=== PATIENT | female | born 1975 | race Caucasian/White ===

== ENCOUNTER → 2016-07-17 | Day surgery (SDC) | payer OTHER ==
[2016-06-27 13:05] VITALS: Ht 170.2 cm; Wt 75.0 kg
[2016-06-27 17:44] LABS: BASO % 1.1 %; COMPLETE YES; EOS % 9.3 %; HEMATOCRIT 41.8 % (37-47); IG% 0.1 %; LYMPH % 37.5 %; LYMPH ABS # 3.56 K/uL (1.2-3.4); MEAN CELL VOLUME 92.7 fL (80-100); MEAN CORPUSCULAR HEMOGLOBIN 31.7 pg (25-34); MEAN CORPUSCULAR HGB CONC 34.2 g/dl (32-36); MEAN PLATELET VOLUME 10.5 fL (7.4-10.4); MONO % 5.6 %; NEUT % 46.4 %; PLATELET COUNT 325 K/uL (130-400); RED BLOOD COUNT 4.51 M/uL (4.2-5.4)
--- NOTE | 2016-06-27 17:46 | HISTORY & PHYSICAL EXAMINATION ---
DATE OF ADMISSION: 07/17/2016 PREOPERATIVE HISTORY AND PHYSICAL ADMITTING DIAGNOSIS: Desired permanent surgical sterilization. ADMISSION HISTORY: The patient is a 41-year-old 1, para 1 on a progesterone only pill who is admitted for permanent surgical sterilization. The patient was placed on the progesterone only pill at age 35 because of her smoking history. While this is providing contraception for her, the patient has spotting all the time. The patient adamantly desires no further childbearing capacity and wishes to have permanent surgical sterilization. PAST MEDICAL HISTORY: OBSTETRICAL: x1. GYNECOLOGICAL: As above. MEDICAL: None. SURGICAL: Gallbladder surgery. ALLERGIES: No known drug allergies. SOCIAL HISTORY: Positive for smoking. FAMILY HISTORY: Noncontributory. REVIEW OF SYSTEMS: As per HPI. ADMISSION PHYSICAL EXAMINATION: GENERAL: Shows a pleasant female in no acute distress. VITAL SIGNS: Blood pressure 118/66, height of 5 feet 8 inches, 165 pounds. HEENT: Unremarkable. NECK: Supple. LUNGS: Clear. HEART: With a regular rhythm and rate. ABDOMEN: Soft, nontender. PELVIC: Shows normal external genitalia, vaginal wall pink and rugated. Cervical os multiparous and closed. Bimanual examination shows a posterior mobile uterus. Adnexa show no palpable masses. RECTAL: Confirmatory. EXTREMITIES: Shows no deep calf tenderness. NEUROLOGIC: Grossly intact. IMPRESSION: A 41-year-old 1, para 1 for permanent surgical sterilization. PLAN: Risks, benefits and alternatives to the surgery have been discussed. While the benefits will be permanent surgical sterilization, the risks are bleeding, infection, inadvertent injury to bowel or bladder or failure of the procedure itself, failure rate quoted at 1-3%. The patient understands this. Permit has been signed and she wishes to proceed.
[~2016-07-17] VITALS: Ht 170.2 cm; Wt 75.0 kg
[~2016-07-17] MED LIST: ATROPINE SULFATE 0.1 MG/ML 5ML SYR IV PRN; BCPILLS PO; DEXAMETHASONE SOD INJ 4 MG/ML VIAL ONE; ESCI10TA17 PO; EpHEDrine SULFATE 50MG/5ML SYR ONE; EpHEDrine SULFATE INJ 50 MG/ML AMP IV PRN; FENTANYL CITRATE INJ 50 MCG/1 ML 2 ML VIAL IV PRN; FENTANYL CITRATE INJ 50 MCG/1 ML 2 ML VIAL ONE; GLYCOPYRROLATE INJ 0.2 MG/ML VIAL ONE; HYDR200T5 PO; IBUPROFEN 600 MG TAB PO PRN; KETOROLAC TROMETHAMINE 30 MG/ML VIAL IV. PRN; KETOROLAC TROMETHAMINE 30 MG/ML VIAL ONE; LACTATED RINGER'S 1000ML 1,000 ML IV SCH; LIDOCAINE HCL 2% 2 ML VIAL (20MG/ML) ONE; MIDAZOLAM HCL 1 MG/ML 2ML VIAL ONE; NEOSTIGMINE METHYLSULFATE 5 MG/5 ML SYR ONE; ONDANSETRON INJ 2 MG/ML 2 ML VIAL IV PRN; ONDANSETRON INJ 2 MG/ML 2 ML VIAL ONE; OXYC-57 PO; OXYCODONE/ACETAMINOPHEN 5-325 TAB PO PRN; ROCURONIUM BROMIDE 10 MG/ML 5 ML VIAL ONE; SODIUM CHLORIDE 0.9% 1000ML 1,000 ML IV SCH
--- NOTE | 2016-07-17 11:57 | History & Physical Bridge - [place] ---
H&P Re-Evaluation Bridge Note: I have examined the patient, reviewed the History & Physical and in the interval since the performance of the History & Physical I have noted the following changes of clinical significance: No changes noted
--- NOTE | 2016-07-17 12:50 | [facility] Post Operative Brief Note ---
Immediate Operative Summary Operative Date July 17, 2016. Pre-Operative Diagnosis Desire for Sterilization Post-Operative Diagnosis Same Procedure(s) Performed Bilateral Laparoscopic Tubal Sterilization Surgeon Dr. Ananya Joiner Forging Press Setter Up Surgeon(s) None Estimated Blood Loss Minimal Findings Posterior uterus, normal appearing tubes and ovaries bilaterally, bilateral fulguration of tubes till resistance met zero Fluids (cc crystalloids) 800 Specimens None Drains None Anesthesia General Complication(s) None Disposition Recovery Room / PACU
--- NOTE | 2016-07-17 12:54 | Discharge Instructions-SurgCtr ---
Discharge Instructions Date of Service July 17, 2016. Visit Reason for Visit: Desires Sterilization Discharge Discharge Diagnosis / Problem: same Discharge Goals Goal(s): Therapeutic intervention Activity Recommendations Activity Limitations: as noted below Anesthesia . Post Anesthesia Instructions: If you have had General Anesthesia or IV Sedation: * Do not drive today. * Resume driving when surgeon permits. * Do not make important decisions or sign legal documents today. * Call surgeon for: 1. Temperature elevations greater than 101 degrees F. 2. Uncontrollable pain. 3. Excessive bleeding. 4. Persistent nausea and vomiting. 5. Medication intolerance (nausea, vomiting or rash). * For nausea and vomiting use only clear liquids such as: tea, soda, bouillon until nausea subsides, then gradually increase diet as tolerated. * If you have any concerns or questions, call your surgeon's office. If physician is unavailable and it is an emergency, call 911 or go to the nearest emergency room. . Instructions / Follow-Up Instructions / Follow-Up ACTIVITY RECOMMENDATIONS: * Rest the first 2-3 days. You should be back to your normal activity levels by day 3. * No heavy lifting for 2 weeks. * No intercourse, tampons or douching for 1-2 weeks. * You may shower the next day. * Do not drive anytime that you are taking narcotic pain medicines. RETURN TO SCHOOL/WORK: * May return to school or work after 2-3 days. DIET: Nausea may occur in the immediate post-operative period. If so, take clear liquids such as tea, bouillon, apple juice until all nausea has subsided, then resume usual diet. MEDICATIONS: Resume previous medications unless instructed otherwise by your surgeon. Ibuprofen 200mg 2-3 tablets every 4-6 hours as needed -- OR -- Aleve 2 tablets every 8-12 hours as needed for post-operative discomfort Medications are over the counter. Tylenol may be used if above medications are contraindicated or not preferred. Medication should be taken with food or milk. Do not take on an empty stomach. SPECIAL CARE INSTRUCTIONS: * Check temperature twice daily for one week. report any elevation over 101 degrees. * You may experience some vagina spotting and/or bleeding. This is normal for 1 -2 weeks and should not be heavier than a normal period. If it is unusual in amount, call your physician. * Post-operative discomfort may consist of a sore throat, a "bloated" feeling and pain in the shoulders. these are normal symptoms, which usually only last for 2-3 days. * Remove band-aids tomorrow and shower. There is no need to replace band-aids unless there is drainage or discomfort. FOLLOW UP VISIT: Call your doctor's office for a post-operative 2 week visit if not already scheduled. Diet Recommendations Home Diet: resume previous diet Procedures Procedures Performed: Bilateral Laparoscopic Tubal Sterilization Pending Studies Studies pending at discharge: no Medical Emergencies . Who to Call and When: Medical Emergencies: If at any time you feel your situation is an emergency, please call 911 immediately. . Non-Emergent Contact Non-Emergency issues call your: Latin Professor Call Non-Emergent contact if: temperature is above 100.5, your pain is not controlled, wound has increased drainage, wound has increased redness, wound has increased pain . . "Provider Documentation" section prepared by Phi Joiner. . [place] Drug Monitoring Program Search Results: patient reviewed within database, no issues identified
--- NOTE | 2016-07-17 13:22 | Anesthesia Progress Nt - [facility] ---
Anesthesia Post Op Note Date & Time July 17, 2016 at 13:22 Vital Signs Pain Intensity: 0 Vital Signs Past 12 Hours Date Time Temp Pulse Resp B/P Pulse Ox O2 Delivery O2 Flow Rate FiO2 07/17/16 12:59 36.8 64 12 111/73 99 Diffusion Mask 6 07/17/16 10:52 36.7 78 20 115/82 95 Room Air Notes Mental Status: alert / awake / arousable, participated in evaluation Pt Amnestic to Procedure: Yes Nausea / Vomiting: adequately controlled Pain: adequately controlled Airway Patency, RR, SpO2: stable & adequate BP & HR: stable & adequate Hydration State: stable & adequate Anesthetic Complications: no major complications apparent
--- NOTE | 2016-07-17 13:24 | Medical Student: [facility] ---
Immediate Operative Summary Operative Date July 17, 2016. Pre-Operative Diagnosis Permanent sterilization Post-Operative Diagnosis Permanent Sterilization Procedure(s) Performed Laproscopic Tubal ligation Surgeon Dr. Joiner Findings Retroverted uterus sitting very posterior with normal ovary and tube on R and difficult to appreciate ovary and tube on L. Anesthesia General Complication(s) None Disposition Recovery Room / PACU
--- NOTE | 2016-07-17 13:59 | OPERATIVE REPORT ---
DATE OF OPERATION: 07/17/2016 PREOPERATIVE DIAGNOSIS: Desired permanent surgical sterilization. POSTOPERATIVE DIAGNOSIS: Same. PROCEDURE PERFORMED: Laparoscopic tubal ligation. SURGEON: Dr. Joiner. ANESTHESIA: General. FINDINGS: Laparoscopic examination of the pelvis showed a posterior uterus with normal appearing tubes and ovaries bilaterally. Bilateral fulguration of fallopian tube in 3 contiguous goins until resistance met 0. OPERATION AND FINDINGS: PROCEDURE IN DETAIL: The patient was taken to the operating room and after general anesthesia, was placed in dorsolithotomy position and draped and prepped in usual fashion. Bladder was drained of any residual urine. Single tooth tenaculum was used to grasp the anterior lip of the cervix. [place] cannula was inserted into the cervical os and fastened to the tenaculum. Small subumbilical incision was made and Veress needle was introduced into the pelvic cavity which was then insufflated with 3 liters of CO2. Veress needle was removed and sharp trocar was used to introduce the laparoscope. Pelvic organs were visualized and then under direct laparoscopic guidance, a suprapubic trocar was used to introduce the stirring probe. Pelvic organs were visualized with the description as above. The stirring probe was removed and the bipolar cautery instrument was inserted through the suprapubic trocar. The fallopian tubes were then cauterized bilaterally in 3 contiguous goins until resistance met 0. Hemostasis was present. The CO2 was allowed to escape from the pelvic cavity. The trocars were removed under direct laparoscopic guidance. The skin incisions were closed with 4-0 Vicryl subcuticular stitches. Sterile dressing applied. [place] cannula and tenaculum removed from the cervix. The patient taken out of dorsal lithotomy to recovery room in satisfactory condition. I attest to the content of the Intraoperative Record and any orders documented therein. Any exceptio ns are noted below.
[2016-07-17 14:12] VITALS: BP 109/75; PULSE 69; TEMP 36.4; O2SAT 95
== END | disposition home or self-care (01) ==
LOC: X.SURG 10:12
PROVIDERS: ATTEND Obstetrics & Gynecology
DX: Z30.2 Encounter for sterilization (principal); F17.200 Nicotine dependence, unspecified, uncomplicated; Z90.49 Acquired absence of other specified parts of digestive tract